=== PATIENT | female | born 1990 | race Caucasian/White ===

== ENCOUNTER 2017-04-12 08:12 | Inpatient (IN) | payer BC ==
[2017-04-12] MEDS ORDERED: Ondansetron 4 MG Tab.DIS PO PRN (10:26)
[2017-04-12] MEDS ORDERED: Nalbuphine 20 MG/1 ML Amp IVPUSH PRN (10:26)
[2017-04-12] MEDS ORDERED: Oxytocin/Lactated Ringers 10 UNIT/1,000 ML BAG IV SCH (10:30)
[2017-04-12] MEDS ORDERED: Measles, Mumps & Rubella Vaccine 0.5 ML SDV SUBCUT ONE (12:15)
[2017-04-12] MEDS ORDERED: fentaNYL 100 MCG/2 ML SDV EPIDUR PRN (12:24)
[2017-04-12] MEDS ORDERED: ePHEDrine 50 MG/ML SDV IVPUSH PRN (12:24)
[2017-04-12] MEDS ORDERED: Ondansetron 4 MG/2 ML SDV IVPUSH PRN (12:24)
[2017-04-12] MEDS ORDERED: diphenhydrAMINE 50 MG/ML SDV IVPUSH PRN (12:24)
[2017-04-12] MEDS ORDERED: Bupivacaine/fentaNYL/NS 100 ML Bag EPIDUR SCH (12:30)
[2017-04-12] MEDS: Lactated Ringers 1,000 ML IV SCH ×3 (12:30→17:18)
--- NOTE | 2017-04-12 12:36 | HP ---
DATE OF ADMISSION: 04/12/2017 ADMISSION DIAGNOSIS: Term intrauterine at 38 and 6/7th weeks gestational age, active labor with cervical dilation progress. HISTORY OF PRESENT ILLNESS: The patient is a 27-year-old, 1, para 0, white female, who is admitted with active labor. She has been dave since last evening. They have now increased in frequency and intensity and are every 3 to 4 minutes apart and moderate intensity, where the patient is having to breathe through some of them. She was evaluated initially in Labor and Delivery and found to have reassuring heart tones, contraction pattern consistent with above. Her cervix has changed somewhat in that she is 3 cm, 90% effaced, bulging bag of rico, -2 station, anterior and very soft. 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 LESLEY is set at 04/20/2017, as based upon an early ultrasound done at 11 and 1/7th weeks and specifically done on 09/30/2016. This is supported by another ultrasound done at 21 and 6/7 weeks on 12/14/2016. Last menstrual period was 07/07/2016. The patient had menarche at age 16. Cycles q.30 days. Her course has been relatively unremarkable. She declined genetic evaluation. She is group B strep negative. She did have some migraine headaches during the , but were manageable. She is rubella nonimmune, therefore is an MMR candidate . 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 She has had mild anemia in and has been on iron therapy. COURSE: The patient was initially seen on 09/21/2016, at 9 weeks and 6 days. She made good fundal height growth during the course of the , was seen on a regular basis. Initial weight was 186. Final weight on last evaluation, 04/04/2017, was 206 for approximately a 20-pound weight gain. labs show blood to be A positive. Antibody screen is negative. First hemoglobin was 13.2 and platelets were 196,000. Pap smear was normal. She is rubella equivocal. She is varicella nonimmune. RPR is nonreactive. Hepatitis B surface antigen and HIV assays were negative. Group B strep screen was negative. Second trimester labs showed a hemoglobin of 11.4, at which time, she was started on iron therapy. Platelets were 260,000 at that time. Her 1- hour GTT was normal at 102. ALLERGIES: None. CURRENT MEDICATIONS: 1. vitamins 1 daily. 2. Sumatriptan succinate 100 mg orally stat for onset of migraine headaches. 3. Ferrous sulfate 325 mg per day at a time different that her vitamins. PAST MEDICAL HISTORY: Unremarkable. PAST SURGICAL HISTORY: Unremarkable. FAMILY HISTORY: Mother and father are alive and well. Two sisters are alive and well. Maternal grandmother is alive, but has a history of stroke. Maternal grandfather is alive and well. Paternal grandmother is alive with history of anxiety. Paternal grandfather is secondary to stroke. No bleeding, clotting, or anesthesia problems noted in the family. SOCIAL HISTORY: The patient is , lives in [place]. 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 She does not use any significant alcohol, drugs, or tobacco. REVIEW OF SYSTEMS: SKIN: Negative. CARDIOVASCULAR: No chest pain or exercise intolerance. LUNGS/RESPIRATORY: No shortness of breath or infectious symptoms. BREASTS: Negative with the exception of changes. GI: Normal with good appetite. : Uterine changes associated with . MUSCULOSKELETAL: Occasional lower extremity edema. NEUROLOGIC: Negative. PHYSICAL EXAMINATION: GENERAL: The patient is a well-developed and well-nourished, pleasant female of stated age, in no acute distress. VITAL SIGNS: Initial weight was 186 prior to . Her height is 5 feet 4 inches. Her prepregnancy body mass index was 36. Her final weight was 206 for a weight gain of 20 pounds. Her last blood pressure was 122/80 and last heart rate in clinic was 136. heart tones are reassuring at this time. SKIN: Warm and dry without lesions. HEENT, NECK, AND BACK: Within normal limits. LUNGS: Clear with good breath sounds in all lung carlson. CARDIOVASCULAR: Shows regular rate and rhythm without murmurs. BREASTS: Exam is deferred having been done at first visit and found to be normal. The patient does plan to breast-feed. ABDOMEN: Protuberant with with the last fundal height at 37 cm on evaluation in clinic. Baby is in a vertex presentation. : Cervix is as described above. EXTREMITIES: Show minimal edema to possibly 1+ pitting edema. NEUROLOGIC: Within normal limits. ASSESSMENT: 1. 38 and 6/7th weeks intrauterine , active labor, progression of cervical dilation. 2. Group B strep screen was negative. 3. The patient is accepting of epidural for her labor and analgesia. 4. The patient plans to nurse. PLAN: 1. Anticipate normal spontaneous vaginal delivery. 2. Support nursing after delivery. 3. Epidural p.r.n. for pain. 4. MMR after delivery as the patient is rubella equivocal. MMODAL /[id number]
--- NOTE | 2017-04-12 12:36 | PCM.PREANE ---
Preanesthetic Assessment - Procedure Proposed Procedure: Labor Epidural - Anesthesia/Transfusion/Family Hx Anesthesia History: No Prior Anesthesia Family History of Anesthesia Reaction: No Transfusion History: No Prior Transfusion(s) - Review of Systems General: No Symptoms Pulmonary: No Symptoms Cardiovascular: No Symptoms Gastrointestinal: Other (GERD with ) Neurological: No Symptoms Other: Reports: None - Physical Assessment NPO Status Date: 04/12/17 NPO Status Time: 12:00 Respiratory Rate: 15 Vital Signs: Last Vital Signs Temp 36.7 C 04/12/17 08:30 Pulse 57 L 04/12/17 08:30 Resp 15 04/12/17 08:30 BP 142/87 H 04/12/17 08:30 Pulse Ox Height: 1.63 m Weight: 90.718 kg ASA Class: 2 Mental Status: Alert & Oriented x3 Airway Class: Mallampati = 1 Dentition: Reports: Normal Dentition Thyro-Mental Finger Breadths: 3 Mouth Opening Finger Breadths: 3 ROM/Head Extension: Full Lungs: Clear to Auscultation, Normal Respiratory Effort Cardiovascular: Regular Rate, Regular Rhythm - Lab Values: Laboratory Last Values WBC 9.84 K/mm3 (3.98-10.04) 04/12/17 11:02 RBC 3.94 M/mm3 (3.98-5.22) L 04/12/17 11:02 Hgb 12.4 gm/L (11.2-15.7) 04/12/17 11:02 Hct 36.8 % (34.1-44.9) 04/12/17 11:02 MCV 93.4 fl (79.4-94.8) 04/12/17 11:02 MCH 31.5 pg (25.6-32.2) 04/12/17 11:02 MCHC 33.7 g/dl (32.2-35.5) 04/12/17 11:02 RDW Std Deviation 44.2 fL (36.4-46.3) 04/12/17 11:02 Plt Count 165 K/mm3 (182-369) L 04/12/17 11:02 MPV 11.2 fl (9.4-12.3) 04/12/17 11:02 Neut % (Auto) 85.2 % (34.0-71.1) H 04/12/17 11:02 Lymph % (Auto) 11.8 % (19.3-51.7) L 04/12/17 11:02 [place] % (Auto) 2.9 % (4.7-12.5) L 04/12/17 11:02 Eos % (Auto) 0 (0.7-5.8) L 04/12/17 11:02 Baso % (Auto) 0.0 % (0.1-1.2) L 04/12/17 11:02 Neut # (Auto) 8.38 K/mm3 (1.56-6.13) H 04/12/17 11:02 Lymph # (Auto) 1.16 K/mm3 (1.18-3.74) L 04/12/17 11:02 [place] # (Auto) 0.29 K/mm3 (0.24-0.36) 04/12/17 11:02 Eos # (Auto) 0.00 K/mm3 (0.04-0.36) L 04/12/17 11:02 Baso # (Auto) 0.00 K/mm3 (0.01-0.08) L 04/12/17 11:02 Manual Slide Review Normal smear 04/12/17 11:02 - Allergies Allergies/Adverse Reactions: Allergies Allergy/AdvReac Type Severity Reaction Status Date / Time No Known Allergies Allergy Verified 04/12/17 10:16 - Blood Blood Available: No Product(s) Available: None - Anesthesia Plan Pre-Op Medication Ordered: None - Acknowledgements Anesthesia Type Planned: Epidural Pt an Appropriate Candidate for the Planned Anesthesia: Yes Alternatives and Risks of Anesthesia Discussed w Pt/Guardian: Yes Pt/Guardian Understands and Agrees with Anesthesia Plan: Yes PreAnesthesia Questionnaire - Past Health History Medical/Surgical History: Denies 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/Surgical 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 Smoking Status *Q: Never Smoker Tobacco Use Within Last Twelve Months: No Second Hand Smoke Exposure: No Recreational Drug Use History: No - HOME MEDS Home Medications: Home Meds Ferrous Sulfate, Dried [Slow Release Iron] 160 mg DAILY 04/12/17 [History] Prenat Vit Comb.10/Iron/Fa/Dha [Vitafol-OB + DHA] 1 each PO DAILY 04/12/17 [ History] - CURRENT (IN HOUSE) MEDS Current Meds: Current Medications Diphenhydramine HCl (Benadryl) 25 mg IVPUSH Q6H PRN PRN Reason: Pruritis Ephedrine Sulfate (Ephedrine Sulfate) 5 mg IVPUSH ASDIRECTED PRN PRN Reason: Hypotension Fentanyl (Sublimaze) 100 mcg EPIDUR Q3H PRN PRN Reason: Pain Fentanyl/Bupivacaine HCl (Fentanyl/Bupivacaine/Ns 2 Mcg-0.125% 100 Ml) 100 ml EPIDUR ASDIRECTED JAIME Lactated Ringer's (Ringers, Lactated) 1,000 mls @ 100 mls/hr IV ASDIRECTED JAIME Oxytocin/Lactated Ringer's (Pitocin In Lr 10 Units/1,000 Ml) 10 unit in 1,000 mls @ 100 mls/hr IV .CONTINUOUS JAIME PRN Reason: Protocol Lidocaine HCl (Xylocaine 1%) 50 ml INJECT ONETIME ONE Stop: 04/12/17 13:01 Nalbuphine HCl (Nubain) 10 mg IVPUSH Q2H PRN PRN Reason: Pain (moderate 4-6) Ondansetron HCl (Zofran Odt) 4 mg PO Q4H PRN PRN Reason: Nausea/Vomiting Ondansetron HCl (Zofran) 4 mg IVPUSH ONETIME PRN PRN Reason: Nausea/Vomiting Discontinued Medications Measles/Mumps/Rubella Vaccine Live (M-M-R Ii Vaccine) 0.5 ml SUBCUT .ONCE ONE Stop: 04/12/17 12:16
[2017-04-12] MEDS ORDERED: Lidocaine 1% 50 ML MDV INJECT ONE (13:00)
--- NOTE | 2017-04-12 18:48 | PCM.SN ---
- Free Text/Narrative Note: Leigh is a 27-year-old 1 now para 1001 white female at 38-6/7 weeks gestational age who is admitted in active labor on the a.m. of 04/12/2017. She reported contractions started approximately 0600 hrs. They progressed and were moderate in intensity upon arrival in labor and delivery. She was dave every 3-5 minutes. heart tones were reassuring. She progressed through labor and became complete at approximately at approximate 1730 hrs. She pushed for approximately half an hour and delivered a viable, espitia, male with Apgars of 9 and 9, a weight of 3150 g (6 pounds 15.1 ounces), a length of 20.0 inches in an occiput anterior position. Patient had multiple vaginal and vulvar lacerations including the bilateral sulcus vaginal laceration, perineal laceration which is second-degree in severity, a right labia minor laceration and 2 very superficial medial minor lacerations anteriorly. These all were repaired with 3-0 Monocryl in an interrupted and short continuous fashion. Epidural was used for anesthesia. Placenta delivered intact in a Isi fashion. It appeared intact and complete. It was meconium-stained. The patient received Pitocin IV after delivery of the baby to facilitate increase in uterine tone and slow bleeding. Pessary blood loss was 300 mL. Condition: good. Patient plans to nurse.
[2017-04-12] MEDS ORDERED: Acetaminophen 325 MG Tab PO PRN (19:08)
[2017-04-12] MEDS ORDERED: Lanolin 100% Cream 7 GM Tube TOP PRN (19:08)
[2017-04-12] MEDS ORDERED: Witch Hazel Medicated Pads 100/Jar TOP PRN (19:08)
[2017-04-12] MEDS ORDERED: Benzocaine/Menthol 20%-0.5% Spray 56 GM Canister TOP PRN (19:08)
[2017-04-12] MEDS: Ibuprofen 600 MG Tab PO PRN (21:01)
[2017-04-12] MEDS: Docusate Sodium 100 MG Cap PO PRN (21:02)
[2017-04-12] MEDS ORDERED: Bupivacaine 0.25% 10 ML SDV ONE (22:22)
[2017-04-13] MEDS: Prenatal Multivitamin with Calcium/Folic Acid/Iron Tab PO SCH (08:14)
--- NOTE | 2017-04-13 08:15 | PCM.SN ---
- Free Text/Narrative Note: Patient doing well. Minimal lochia. Pain is well-controlled. Voiding well and ambulating without concerns. Some discomfort in her bottom secondary to stitches. Patient is afebrile, vital signs stable. Uterus is at umbilicus -1. Legs nontender, minimal edema. day 1 labs show that hemoglobin is 9.9, platelets are 144. Assessment/plan: day 1 doing well. Recommend routine cares. Home tomorrow.
[2017-04-13] MEDS: Ibuprofen 600 MG Tab PO PRN ×2 (09:18→18:42)
[2017-04-13] MEDS: Docusate Sodium 100 MG Cap PO PRN (18:41)
[2017-04-14 05:08] VITALS: BP 142/87
--- NOTE | 2017-04-14 08:44 | PCM.DCSUM1 ---
Discharge Summary - Hospital Course Free Text/Narrative:: Leigh is a 27-year-old 1 now para 1001 white female at 38-6/7 weeks gestational age who is admitted in active labor on the a.m. of 04/12/2017. She reported contractions started approximately 0600 hrs. They progressed and were moderate in intensity upon arrival in labor and delivery. She was dave every 3-5 minutes. heart tones were reassuring. She progressed through labor and became complete at approximately at approximate 1730 hrs. She pushed for approximately half an hour and delivered a viable, espitia, male with Apgars of 9 and 9, a weight of 3150 g (6 pounds 15.1 ounces), a length of 20.0 inches in an occiput anterior position. Patient had multiple vaginal and vulvar lacerations including the bilateral sulcus vaginal laceration, perineal laceration which is second-degree in severity, a right labia minor laceration and 2 very superficial medial minor lacerations anteriorly. These all were repaired with 3-0 Monocryl in an interrupted and short continuous fashion. Epidural was used for anesthesia. Placenta delivered intact in a Isi fashion. It appeared intact and complete. It was meconium-stained. The patient received Pitocin IV after delivery of the baby to facilitate increase in uterine tone and slow bleeding. Pessary blood loss was 300 mL. patient's done well. She is nursing without problems, she is ambulating well and voiding without concerns. Pain is under good control. First day laboratory testing shows hemoglobin 9.9 and platelets of 144. Patient is doing well with these results. Patient is desiring to be discharged today. - Discharge Data Discharge Date: 04/14/17 Discharge Disposition: Home, Self-Care 01 Condition: Good - Patient Instructions Diet: Regular Diet as Tolerated (Nursing diet was increased calories and calcium.) Activity: As Tolerated (No intercourse or tampons until bleeding resolves.) Driving: May Drive Today Showering/Bathing: May Shower (May take a bath) Notify Provider of: Fever, Increased Pain, Swelling and Redness - Discharge Plan Home Medications: Home Meds Ferrous Sulfate, Dried [Slow Release Iron] 160 mg DAILY 04/12/17 [History] Prenat Vit Comb.10/Iron/Fa/Dha [Vitafol-OB + DHA] 1 each PO DAILY 04/12/17 [ History] Ibuprofen [IJD: Ibuprofen] 600 mg PO Q4H PRN #30 tablet 04/14/17 [Rx] Referrals: Adolfo Buck MD [Primary Care Provider] - ([facility] - Discharge Summary/Plan Comment DC Time >30 min.: No Discharge Summary/Plan Comment: Discharge instructions: 1. Discharge home 2. Regular, high fiber, nursing diet with increase calories and calcium as recommended. 3. Precautions given concern increased pain, bleeding, temperature, signs/ symptoms of DVT/PE. 4. Medications per home medication was printed, discussed with and given to the patient. 5. [facility]. Diagnosis: 38-6/7 week intrauterine -delivered Condition: Good - Patient Data Vitals - Most Recent: Last Vital Signs Temp 36.6 C 04/14/17 05:02 Pulse 71 04/14/17 05:02 Resp 15 04/13/17 11:38 BP 121/91 H 04/14/17 05:02 Pulse Ox 97 04/14/17 05:02 Weight - Most Recent: 90.718 kg Med Orders - Current: Current Medications Acetaminophen (Tylenol) 650 mg PO Q4H PRN PRN Reason: mild pain or fever Benzocaine/Menthol (Dermoplast Pain Relief [place]) 0 gm TOP ASDIRECTED PRN PRN Reason: Perineal Comfort Measure Last Admin: 04/12/17 21:28 Dose: 1 canister Docusate Sodium (Colace) 100 mg PO BID PRN PRN Reason: Constipation Last Admin: 04/13/17 18:41 Dose: 100 mg Emollient Ointment (Lansinoh Hpa) 0 gm TOP ASDIRECTED PRN PRN Reason: Sore Nipples Last Admin: 04/13/17 09:37 Dose: 7 gm Ibuprofen (Motrin) 600 mg PO Q4H PRN PRN Reason: Mild pain or fever Last Admin: 04/13/17 18:42 Dose: 600 mg Prenat Multivit/[place]/Iron/Folic Ac ( Plus Iron) 1 each PO DAILY JAIME Last Admin: 04/13/17 08:14 Dose: 1 each Witch Janeen (Tucks) 1 pad TOP ASDIRECTED PRN PRN Reason: Hemorrhoid pain Last Admin: 04/12/17 21:29 Dose: 1 tub Discontinued Medications Bupivacaine HCl (Sensorcaine-Mpf 0.25%) 10 ml .ROUTE .STK-MED ONE Stop: 04/12/17 22:23 Diphenhydramine HCl (Benadryl) 25 mg IVPUSH Q6H PRN PRN Reason: Pruritis Ephedrine Sulfate (Ephedrine Sulfate) 5 mg IVPUSH ASDIRECTED PRN PRN Reason: Hypotension Fentanyl (Sublimaze) 100 mcg EPIDUR Q3H PRN PRN Reason: Pain Last Admin: 04/12/17 13:05 Dose: 100 mcg Fentanyl/Bupivacaine HCl (Fentanyl/Bupivacaine/Ns 2 Mcg-0.125% 100 Ml) 100 ml EPIDUR ASDIRECTED JAIME Last Admin: 04/12/17 13:06 Dose: 100 ml Lactated Ringer's (Ringers, Lactated) 1,000 mls @ 100 mls/hr IV ASDIRECTED JAIME Last Admin: 04/12/17 17:18 Dose: 100 mls/hr Oxytocin/Lactated Ringer's (Pitocin In Lr 10 Units/1,000 Ml) 10 unit in 1,000 mls @ 100 mls/hr IV .CONTINUOUS JAIME PRN Reason: Protocol Last Admin: 04/12/17 18:11 Dose: 500 mls/hr Lidocaine HCl (Xylocaine 1%) 50 ml INJECT ONETIME ONE Stop: 04/12/17 13:01 Last Admin: 04/13/17 10:06 Dose: Not Given Measles/Mumps/Rubella Vaccine Live (M-M-R Ii Vaccine) 0.5 ml SUBCUT .ONCE ONE Stop: 04/12/17 12:16 Last Admin: 04/13/17 10:32 Dose: 0.5 ml Nalbuphine HCl (Nubain) 10 mg IVPUSH Q2H PRN PRN Reason: Pain (moderate 4-6) Ondansetron HCl (Zofran Odt) 4 mg PO Q4H PRN PRN Reason: Nausea/Vomiting Ondansetron HCl (Zofran) 4 mg IVPUSH ONETIME PRN PRN Reason: Nausea/Vomiting *Q Meaningful Use (DIS) - VTE *Q VTE Criteria *Q: - Stroke *Q Stroke Criteria *Q: - AMI *Q AMI Criteria *Q:
[2017-04-14] MEDS: Prenatal Multivitamin with Calcium/Folic Acid/Iron Tab PO SCH (10:15)
== END 2017-04-14 10:15 | disposition home or self-care (01) | DRG 560 ==
LOC: JD.OB 08:12 → JD.OBCHECK 08:12 → JD.OB 10:26 → JD.OBCHECK 10:26 → OBSVTOIN 18:06 → JD.OB 18:06
PROVIDERS: ADMIT Obstetrics & Gynecology; ATTEND Obstetrics & Gynecology
PROC: 10E0XZZ Delivery of Products of Conception, External Approach (ICD-10-PCS; principal; 2017-04-12)
PROC: 0KQM0ZZ Repair Perineum Muscle, Open Approach (ICD-10-PCS; 2017-04-12)
PROC: 00HU33Z Insertion of Infusion Device into Spinal Canal, Percutaneous Approach (ICD-10-PCS; 2017-04-12)
PROC: 3E0R3CZ (ICD-10-PCS; 2017-04-12)
PROC: 3E0234Z Introduction of Serum, Toxoid and Vaccine into Muscle, Percutaneous Approach (ICD-10-PCS; 2017-04-13)
DX: O70.1 Second degree perineal laceration during delivery (principal); O69.81X0 Labor and delivery complicated by cord around neck, without compression, not applicable or unspecified; Z3A.39 39 weeks gestation of pregnancy; Z37.0 Single live birth; Z23 Encounter for immunization
CPT/HCPCS: 01967; 36415; 85025; 85027; 90707; A9270-GY; J2590; J3010; J7120

== ENCOUNTER 2020-04-01 06:50 | Inpatient (IN) | payer OTHER ==
--- NOTE | 2020-03-31 13:11 | PCM.LDHP ---
L&D History of Present Illness - General Admit Problem/Dx: Admission Diagnosis/Problem Admission Diagnosis/Problem - Related Data Allergies/Adverse Reactions: Allergies Allergy/AdvReac Type Severity Reaction Status Date / Time No Known Allergies Allergy Verified 04/12/17 10:16 Home Medications: Home Meds Ferrous Sulfate, Dried [Slow Release Iron] 160 mg DAILY 04/12/17 [History] Vit 10/Iron/Folic/Dha [Vitafol-OB + DHA] 1 each PO DAILY 04/12/17 [History] Ibuprofen [IJD: Ibuprofen] 600 mg PO Q4H PRN #30 tablet 04/14/17 [Rx] Past Medical History - Past Health History Medical/Surgical History: Denies 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
[2020-04-01] MEDS ORDERED: Nalbuphine 10 MG/ML Syringe IVPUSH PRN (07:05)
[2020-04-01] MEDS ORDERED: Sodium Chloride 0.9% 10 ML Syringe FLUSH PRN (07:05)
[2020-04-01] MEDS ORDERED: Oxytocin/Lactated Ringers 10 UNIT/1,000 ML BAG IV SCH ×2 (07:15)
[2020-04-01] MEDS ORDERED: Ampicillin 2 GM in Sodium Chloride 0.9% 100 ML IV ONE (07:30)
[2020-04-01] MEDS: Lactated Ringers 1,000 ML IV SCH ×4 (07:47→13:10)
--- NOTE | 2020-04-01 09:11 | PCM.PREANE ---
Preanesthetic Assessment - Procedure Proposed Procedure: jackson - Anesthesia/Transfusion/Family Hx Anesthesia History: Prior Anesthesia Without Reaction Family History of Anesthesia Reaction: No Transfusion History: No Prior Transfusion(s) - Review of Systems General: No Symptoms Pulmonary: No Symptoms Cardiovascular: No Symptoms Gastrointestinal: Nausea (this last week) Neurological: No Symptoms Other: Reports: None, Sinus Problem (allergies- uses claritin) - Physical Assessment Vital Signs: Last Vital Signs Temp 97.2 F 04/01/20 07:05 Pulse 86 04/01/20 07:05 Resp 16 04/01/20 07:05 BP 126/81 04/01/20 07:05 Pulse Ox 100 04/01/20 07:05 Height: 5 ft 4 in Weight: 88.995 kg ASA Class: 2 Mental Status: Alert & Oriented x3 Airway Class: Mallampati = 1 Dentition: Reports: Normal Dentition Thyro-Mental Finger Breadths: 3 Mouth Opening Finger Breadths: 3 ROM/Head Extension: Full Lungs: Clear to Auscultation, Normal Respiratory Effort Cardiovascular: Regular Rate, Regular Rhythm - Lab Values: Laboratory Last Values WBC 5.69 K/mm3 (3.98-10.04) 04/01/20 07:24 RBC 3.80 M/mm3 (3.98-5.22) L 04/01/20 07:24 Hgb 11.8 gm/dl (11.2-15.7) D 04/01/20 07:24 Hct 36.0 % (34.1-44.9) 04/01/20 07:24 MCV 94.7 fl (79.4-94.8) 04/01/20 07:24 MCH 31.1 pg (25.6-32.2) 04/01/20 07:24 MCHC 32.8 g/dl (32.2-35.5) 04/01/20 07:24 RDW Std Deviation 44.9 fL (36.4-46.3) 04/01/20 07:24 Plt Count 192 K/mm3 (182-369) 04/01/20 07:24 MPV 10.6 fl (9.4-12.3) 04/01/20 07:24 Neut % (Auto) 60.7 % (34.0-71.1) 04/01/20 07:24 Lymph % (Auto) 29.9 % (19.3-51.7) 04/01/20 07:24 [place] % (Auto) 8.3 % (4.7-12.5) 04/01/20 07:24 Eos % (Auto) 0.7 (0.7-5.8) 04/01/20 07:24 Baso % (Auto) 0.2 % (0.1-1.2) 04/01/20 07:24 Neut # (Auto) 3.46 K/mm3 (1.56-6.13) 04/01/20 07:24 Lymph # (Auto) 1.70 K/mm3 (1.18-3.74) 04/01/20 07:24 [place] # (Auto) 0.47 K/mm3 (0.24-0.36) H 04/01/20 07:24 Eos # (Auto) 0.04 K/mm3 (0.04-0.36) 04/01/20 07:24 Baso # (Auto) 0.01 K/mm3 (0.01-0.08) 04/01/20 07:24 COVID-19 (INGA) Negative (NEGATIVE) 04/01/20 07:52 Blood Type A POSITIVE 04/01/20 07:24 Gel Antibody Screen Negative 04/01/20 07:24 - Allergies Allergies/Adverse Reactions: Allergies Allergy/AdvReac Type Severity Reaction Status Date / Time No Known Allergies Allergy Verified 04/01/20 07:05 - Blood Blood Available: No - Acknowledgements Anesthesia Type Planned: Epidural Pt an Appropriate Candidate for the Planned Anesthesia: Yes Alternatives and Risks of Anesthesia Discussed w Pt/Guardian: Yes Pt/Guardian Understands and Agrees with Anesthesia Plan: Yes PreAnesthesia Questionnaire - Past Health History Medical/Surgical History: Denies Medical/Surgical History Cardiovascular History: Reports: None Respiratory History: Reports: None Gastrointestinal History: Reports: GERD (with preg) 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 Oncologic (Cancer) History: Reports: None - History Comment History Comment: claritin for allergies prn - SUBSTANCE USE Smoking Status *Q: Never Smoker Tobacco Use Within Last Twelve Months: No Second Hand Smoke Exposure: No Days Per Week of Alcohol Use: 0 Recreational Drug Use History: No - HOME MEDS Home Medications: Home Meds Ferrous Sulfate, Dried [Slow Release Iron] 160 mg DAILY 04/12/17 [History] Vit 10/Iron/Folic/Dha [Vitafol-OB + DHA] 1 each PO DAILY 04/12/17 [History] - CURRENT (IN HOUSE) MEDS Current Meds: Current Medications Ampicillin Sodium 1 gm/ Sodium (Chloride) 100 mls @ 200 mls/hr IV Q4H JAIME Oxytocin/Lactated Ringer's (Pitocin In Lr 10 Units/1,000 Ml) 10 unit in 1,000 mls @ 12 mls/hr IV TITRATE JAIME; Protocol Last Titration: 04/01/20 08:21 Dose: 4 munits/min, 24 mls/hr Documented by: Oxytocin/Lactated Ringer's (Pitocin In Lr 10 Units/1,000 Ml) 10 unit in 1,000 mls @ 500 mls/hr IV .CONTINUOUS JAIME Lactated Ringer's (Ringers, Lactated) 1,000 mls @ 100 mls/hr IV ASDIRECTED JAIME Last Admin: 04/01/20 07:47 Dose: 100 mls/hr Documented by: Nalbuphine HCl (Nubain) 10 mg IVPUSH Q2H PRN PRN Reason: Pain Sodium Chloride (Saline Flush) 10 ml FLUSH ASDIRECTED PRN PRN Reason: Keep Vein Open Discontinued Medications Ampicillin Sodium 2 gm/ Sodium (Chloride) 100 mls @ 200 mls/hr IV ONETIME ONE Stop: 04/01/20 07:59 Last Admin: 04/01/20 07:47 Dose: 200 mls/hr Documented by:
--- NOTE | 2020-04-01 09:31 | PCM.LDHP ---
<Marychuy Jorge E - Last Filed: 04/01/20 15:36> L&D History of Present Illness - General Date of Service: 04/01/20 Admit Problem/Dx: Patient Status Order with Admit Dx/Problem 04/01/20 07:05 Patient Status [ADT] Routine Admission Diagnosis/Problem Admission Diagnosis/Problem 04/01/20 09:21 Leigh is a 30 year old -0-0-1 white female presenting at 39 4/7 weeks gestation with an LESLEY of 04/04/2020 for elective induction of labor. Source of Information: Patient History Limitations: Reports: No Limitations, Physical Impairment - History of Present Illness Introduction:: Leigh is a 30 year old -0-0-1 white female presenting at 39 4/7 weeks gestation with an LESLEY of 04/04/2020 for elective induction of labor. Cervix upon admission is 2+ cm, 70% effaced, soft, mid-position, and -3 station, Szymanski score was 6. Ampicillin was began this morning due to GBS positive test. Pitocin was administered and membranes were ruptured with clear fluid. Leigh has been feeling well aside from some nausea which began about a week and a half ago. She has been feeling Harrison Epstein contractions and occasional groin pain, both new for her this . She has no concerns at this time. She has been taking a daily vitamin and iron supplementation. She has a history of seasonal allergies treated with Claritin, but greatly improved during . She does inform me that she was told that her spine was shallow at her epidural during her previous in 2017. The induction procedural steps, risks, benefits, and alternative options for care were discussed with the patient and her . They appear to understand and wish to proceed with induction at this time. OBGYN: Menarche began at age 16. Her cycles occur every 28-31 days. She was not using control at time of conception. LMP was . Her LESLEY of 04/04/2020 was estimated from her LMP and supported by 3 ultrasounds, on 09/17/2019, 12/09/2019, and 01/10/2020. 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 Patient has no history of STI's or abnormal pap smears. Her previous pregnancies include: 1. Male infant born on 04/12/2017 at 38 6/7 weeks gestation via with epidural after 15 hours of labor - 6 lbs 5 oz. Child was born in [place], [place] and is named Ronald Hanna. Course: Leigh was seen for her first visit on 08/28/2019. LESLEY according to [place] correlated well with her LMP. She was seen on a regular basis throughout the with stable vital signs and appropriate growth supported by fundal height measurements. Influenza vaccine was given on 08/28/2019 and Tdap was given in [place] on 02/19/2020. She has been taking a daily vitamin and iron supplementation. Pre- weight was 174 lbs. Weight today is 196 lbs 3.2 oz, a total increase of 22 lbs 3 oz during . GBS screen was positive on 03/04/2020 and she received prophylactic Ampicillin this morning administered in Labor and Delivery. Declined genetic testing. She desires an ep idural in Labor ad Delivery. She does plan to breastfeed. Laboratory Testing in : Blood type is A+ with a negative antibody screen. At her first visit on 08/28/2019, her Hgb was 12.8 g/dL with a platelet count of 216,000/uL. Rubella titer showed immunity. Urine culture was negative. HBsAg, HIV, chlamydia, and gonorrhea testing were all negative. Her second trimester Hgb was 11.9 g/dL with a platelet count of 201,000/uL. 1 hour glucose tolerance test was normal at 131. Third trimester VDRL/RPR was non-reactive. GBS on 03/04/2020 was positive, as noted above. - Related Data Allergies/Adverse Reactions: Allergies Allergy/AdvReac Type Severity Reaction Status Date / Time No Known Allergies Allergy Verified 04/01/20 07:05 Home Medications: Home Meds Ferrous Sulfate, Dried [Slow Release Iron] 160 mg DAILY 04/12/17 [History] Vit 10/Iron/Folic/Dha [Vitafol-OB + DHA] 1 each PO DAILY 04/12/17 [History] Past Medical History - Past Health History Medical/Surgical History: Denies Medical/Surgical History Cardiovascular History: Reports: None Respiratory History: Reports: None Gastrointestinal History: Reports: GERD (with preg) HOOKER LASTER History: Reports: None, Oncologic (Cancer) History: Reports: None - History Comment History Comment: claritin for allergies prn Social & Family History - Family History Family Medical History: Noncontributory Cardiac: Reports: Other (See Below) (Stroke: Maternal grandmother, Maternal grandfather, Paternal Grandfather) Endocrine/Metabolic: Reports: Diabetes, type II (Paternal Grandmother) - Tobacco Use Smoking Status *Q: Never Smoker Second Hand Smoke Exposure: No - Caffeine Use Caffeine Use: Reports: None - Alcohol Use Days Per Week of Alcohol Use: 0 - Recreational Drug Use Recreational Drug Use: No H&P Review of Systems - Review of Systems: Review Of Systems: See Below Free Text/Narrative: General: No fever or chills. Head: No headaches, dizziness, or lightheadedness. Eyes: No eye pain or discharge. Ears: No ear pain or discharge. Nose: No rhinorrhea or congestion. Throat: No sore throat or dysphagia. Cardiovascular: No chest pain or palpitations. Respiratory: No shortness or breath, cough, or wheeze. Gastrointestinal: Nausea for the past week and a half. No abdominal pain or vomiting. Genitourinary: No vaginal itching, discharge, bleeding, or leakage of fluid. Musculoskeletal: No joint pain or muscle pain. Skin: No rashes. L&D Exam - Exam Exam: See Below - Vital Signs Vital Signs: Last Vital Signs Temp 97.2 F 04/01/20 07:05 Pulse 86 04/01/20 07:05 Resp 16 04/01/20 07:05 BP 126/81 04/01/20 07:05 Pulse Ox 100 04/01/20 07:05 Weight: 88.995 kg - Szymanski Score Szymanski Score Cervix Position: Midposition Szymanski Score Consistency: Soft Szymanski Score Effacement: 51-70% Szymanski Score Dilation: 1-2 cm (2+ cm) Szymanski Score 's Station: -3 Szymanski Score Total: 6 - Exam General: Alert, Oriented, Other (No acute distress.) HEENT: Other (HEENT within normal limits. ) Neck: Supple Lungs: Clear to Auscultation, Normal Respiratory Effort, Other (No wheezes, crackles, rales, or rhonchi. ) Cardiovascular: Regular Rate, Regular Rhythm, Normal S1, Normal S2, Other (No murmurs. ) Genitourinary: Normal external exam Extremities: Non-Tender, No Pedal Edema Skin: Warm, Dry, Intact Neurological: Normal Speech, Normal Tone Psychiatric: Alert, Normal Affect, Normal Mood - Patient Data Lab Results Last 24 hrs: Laboratory Results - last 24 hr 04/01/20 04/01/20 04/01/20 Range/Units 07:24 07:24 07:52 WBC 5.69 (3.98-10.04) K/mm3 RBC 3.80 L (3.98-5.22) M/mm3 Hgb 11.8 D (11.2-15.7) gm/dl Hct 36.0 (34.1-44.9) % MCV 94.7 (79.4-94.8) fl MCH 31.1 (25.6-32.2) pg MCHC 32.8 (32.2-35.5) g/dl RDW Std Deviation 44.9 (36.4-46.3) fL Plt Count 192 (182-369) K/mm3 MPV 10.6 (9.4-12.3) fl Neut % (Auto) 60.7 (34.0-71.1) % Lymph % (Auto) 29.9 (19.3-51.7) % Dale % (Auto) 8.3 (4.7-12.5) % Eos % (Auto) 0.7 (0.7-5.8) Baso % (Auto) 0.2 (0.1-1.2) % Neut # (Auto) 3.46 (1.56-6.13) K/mm3 Lymph # (Auto) 1.70 (1.18-3.74) K/mm3 Dale # (Auto) 0.47 H (0.24-0.36) K/mm3 Eos # (Auto) 0.04 (0.04-0.36) K/mm3 Baso # (Auto) 0.01 (0.01-0.08) K/mm3 COVID-19 (INGA) Negative (NEGATIVE) Blood Type A POSITIVE Gel Antibody Screen Negative Result Diagrams: 04/01/20 07:24 Problem List Initiated/Reviewed/Updated: Yes Orders Last 24hrs: Active Orders 24 hr Category Date Time Status Patient Status [ADT] Routine ADT 04/01/20 07:05 Active Activity as Tolerated [RC] PFP Care 04/01/20 07:05 Active Communication Order [RC] ASDIRECTED Care 04/01/20 07:05 Active Heart Tones [RC] ASDIRECTED Care 04/01/20 07:06 Active Non Stress Test [RC] PER UNIT ROUTINE Care 04/01/20 07:05 Active Notify Provider [RC] PFP Care 04/01/20 07:05 Active Notify Provider [RC] PRN Care 04/01/20 07:05 Active Peripheral IV Care [RC] . DIRECTED Care 04/01/20 07:06 Active Vital Signs [RC] PER UNIT ROUTINE Care 04/01/20 07:05 Active Regular Diet [DIET] Diet 04/01/20 Breakfast Active PATIENT RETYPE [BBK] Routine Lab 04/01/20 08:23 Ordered RAPID PLASMA REAGIN,RPR [CHEM] Routine Lab 04/01/20 07:24 Received Ampicillin 1 gm Med 04/01/20 11:30 Active Sodium Chloride 0.9% [Normal Saline] 100 ml IV Q4H Lactated Ringers [Ringers, Lactated] 1,000 ml Med 04/01/20 07:15 Active IV ASDIRECTED Nalbuphine [Nubain] Med 04/01/20 07:05 Active 10 mg IVPUSH Q2H PRN Oxytocin/Lactated Ringers [Pitocin in LR 10 Units/1,000 Med 04/01/20 07:15 Act pat ML] 10 unit in 1,000 ml IV .CONTINUOUS Oxytocin/Lactated Ringers [Pitocin in LR 10 Units/1,000 Med 04/01/20 07:15 Active ML] 10 unit in 1,000 ml IV TITRATE Sodium Chloride 0.9% [Saline Flush] Med 04/01/20 07:05 Active 10 ml FLUSH ASDIRECTED PRN Electronic Heart Tones Ext w TOCO [WOMSER] Oth 04/01/20 07:05 Ordered Routine Electronic Heart Tones Internal [WOMSER] Per Unit Oth 04/01/20 07:05 Ordered Routine Peripheral IV Insertion Adult [OM.PC] Routine Oth 04/01/20 07:05 Ordered Resuscitation Status Routine Resus Stat 04/01/20 07:05 Ordered Medication Orders Ampicillin Sodium 1 gm/ Sodium (Chloride) 100 mls @ 200 mls/hr IV Q4H JAIME Oxytocin/Lactated Ringer's (Pitocin In Lr 10 Units/1,000 Ml) 10 unit in 1,000 mls @ 12 mls/hr IV TITRATE JAIME; Protocol Last Titration: 04/01/20 08:21 Dose: 4 munits/min, 24 mls/hr Documented by: [email or web address] Admin: 04/01/20 07:47 Dose: 2 munits/min, 12 mls/hr Documented by: [id number] Oxytocin/Lactated Ringer's (Pitocin In Lr 10 Units/1,000 Ml) 10 unit in 1,000 mls @ 500 mls/hr IV .CONTINUOUS JAIME Lactated Ringer's (Ringers, Lactated) 1,000 mls @ 100 mls/hr IV ASDIRECTED JAIME Last Admin: 04/01/20 07:47 Dose: 100 mls/hr Documented by: [id number] Nalbuphine HCl (Nubain) 10 mg IVPUSH Q2H PRN PRN Reason: Pain Sodium Chloride (Saline Flush) 10 ml FLUSH ASDIRECTED PRN PRN Reason: Keep Vein Open Assessment/Plan Comment:: Assessment & Plan 1. female at 39 4/7 weeks gestation - Induction of labor by Pitocin and AROM. 2. Group B strep positive - susceptible to Ampicillin, prophylactic Ampicillin administered this morning. 3. Induction of labor by Pitocin - Administered this morning. 4. Patient desires epidural - Epidural completed this morning. <Adolfo Buck F - Last Filed: 04/01/20 17:09> L&D History of Present Illness - General Admit Problem/Dx: Patient Status Order with Admit Dx/Problem 04/01/20 07:05 Patient Status [ADT] Routine Admission Diagnosis/Problem Admission Diagnosis/Problem L&D Exam - Vital Signs Vital Signs: Last Vital Signs Temp 36.2 C 04/01/20 07:05 Pulse 86 04/01/20 07:05 Resp 16 04/01/20 07:05 BP 126/81 04/01/20 07:05 Pulse Ox 100 04/01/20 07:05 - Patient Data Lab Results Last 24 hrs: Laboratory Results - last 24 hr 04/01/20 04/01/20 04/01/20 Range/Units 07:24 07:24 07:52 WBC 5.69 (3.98-10.04) K/mm3 RBC 3.80 L (3.98-5.22) M/mm3 Hgb 11.8 D (11.2-15.7) gm/dl Hct 36.0 (34.1-44.9) % MCV 94.7 (79.4-94.8) fl MCH 31.1 (25.6-32.2) pg MCHC 32.8 (32.2-35.5) g/dl RDW Std Deviation 44.9 (36.4-46.3) fL Plt Count 192 (182-369) K/mm3 MPV 10.6 (9.4-12.3) fl Neut % (Auto) 60.7 (34.0-71.1) % Lymph % (Auto) 29.9 (19.3-51.7) % Dale % (Auto) 8.3 (4.7-12.5) % Eos % (Auto) 0.7 (0.7-5.8) Baso % (Auto) 0.2 (0.1-1.2) % Neut # (Auto) 3.46 (1.56-6.13) K/mm3 Lymph # (Auto) 1.70 (1.18-3.74) K/mm3 Dale # (Auto) 0.47 H (0.24-0.36) K/mm3 Eos # (Auto) 0.04 (0.04-0.36) K/mm3 Baso # (Auto) 0.01 (0.01-0.08) K/mm3 COVID-19 (INGA) Negative (NEGATIVE) Blood Type A POSITIVE Gel Antibody Screen Negative Result Diagrams: 04/01/20 07:24 Orders Last 24hrs: Active Orders 24 hr Category Date Time Status Patient Status [ADT] Routine ADT 04/01/20 07:05 Active Activity as Tolerated [RC] PFP Care 04/01/20 07:05 Active Communication Order [RC] ASDIRECTED Care 04/01/20 07:05 Active Heart Tones [RC] ASDIRECTED Care 04/01/20 07:06 Active Non Stress Test [RC] PER UNIT ROUTINE Care 04/01/20 07:05 Active Notify Provider [RC] ASDIRECTED Care 04/01/20 09:59 Active Notify Provider [RC] PFP Care 04/01/20 07:05 Active Notify Provider [RC] PRN Care 04/01/20 07:05 Active Peripheral IV Care [RC] . DIRECTED Care 04/01/20 07:06 Active Vital Signs [RC] PER UNIT ROUTINE Care 04/01/20 07:05 Active Regular Diet [DIET] Diet 04/01/20 Breakfast Active RAPID PLASMA REAGIN,RPR [CHEM] Routine Lab 04/01/20 07:24 Received Ampicillin 1 gm Med 04/01/20 11:30 Active Sodium Chloride 0.9% [Normal Saline] 100 ml IV Q4H Bupivacaine/fentaNYL/NS [fentaNYL/Bupivacaine/NS 2 MCG- Med 04/01/20 09:59 Active 0.125% 100 ML] 100 ml EPIDUR ASDIRECTED PRN Lactated Ringers [Ringers, Lactated] 1,000 ml Med 04/01/20 07:15 Active IV ASDIRECTED Nalbuphine [Nubain] Med 04/01/20 07:05 Active 10 mg IVPUSH Q2H PRN Oxytocin/Lactated Ringers [Pitocin in LR 10 Units/1,000 Med 04/01/20 07:15 Active ML] 10 unit in 1,000 ml IV .CONTINUOUS Oxytocin/Lactated Ringers [Pitocin in LR 10 Units/1,000 Med 04/01/20 07:15 Active ML] 10 unit in 1,000 ml IV TITRATE Sodium Chloride 0.9% [Saline Flush] Med 04/01/20 07:05 Active 10 ml FLUSH ASDIRECTED PRN diphenhydrAMINE [Benadryl] Med 04/01/20 09:59 Active 25 mg IVPUSH Q6H PRN ePHEDrine [ePHEDrine sulfate] Med 04/01/20 09:59 Active 5 mg IVPUSH ASDIRECTED PRN fentaNYL [Sublimaze] Med 04/01/20 09:59 Active 100 mcg EPIDUR Q3H PRN Electronic Heart Tones Ext w TOCO [WOMSER] Oth 04/01/20 07:05 Ordered Routine Electronic Heart Tones Internal [WOMSER] Per Unit Ot 04/01/20 07:05 Ordered Routine Peripheral IV Insertion Adult [OM.PC] Routine Oth 04/01/20 07:05 Ordered Resuscitation Status Routine Resus Stat 04/01/20 07:05 Ordered Medication Orders Diphenhydramine HCl (Benadryl) 25 mg IVPUSH Q6H PRN PRN Reason: pruritis Ephedrine Sulfate (Ephedrine Sulfate) 5 mg IVPUSH ASDIRECTED PRN PRN Reason: Hypotension Fentanyl (Sublimaze) 100 mcg EPIDUR Q3H PRN PRN Reason: Pain Last Admin: 04/01/20 10:14 Dose: 100 mcg Documented by: [id number] Fentanyl/Bupivacaine HCl (Fentanyl/Bupivacaine/Ns 2 Mcg-0.125% 100 Ml) 100 ml EPIDUR ASDIRECTED PRN PRN Reason: Pain Last Admin: 04/01/20 10:14 Dose: 100 ml Documented by: [id number] Ampicillin Sodium 1 gm/ Sodium (Chloride) 100 mls @ 200 mls/hr IV Q4H JAIME Last Admin: 04/01/20 15:25 Dose: 200 mls/hr Documented by: [email or web address] Infusion: 04/01/20 11:59 Dose: 200 mls/hr Documented by: [email or web address] Admin: 04/01/20 11:29 Dose: 200 mls/hr Documented by: [id number] Oxytocin/Lactated Ringer's (Pitocin In Lr 10 Units/1,000 Ml) 10 unit in 1,000 mls @ 12 mls/hr IV TITRATE JAIME; Protocol Last Titration: 04/01/20 10:15 Dose: 8 munits/min, 48 mls/hr Documented by: [id number] Titration: 04/01/20 09:15 Dose: 6 munits/min, 36 mls/hr Documented by: [id number] Titration: 04/01/20 08:21 Dose: 4 munits/min, 24 mls/hr Documented by: [id number] Admin: 04/01/20 07:47 Dose: 2 munits/min, 12 mls/hr Documented by: [id number] Oxytocin/Lactated Ringer's (Pitocin In Lr 10 Units/1,000 Ml) 10 unit in 1,000 mls @ 500 mls/hr IV .CONTINUOUS JAIME Lactated Ringer's (Ringers, Lactated) 1,000 mls @ 100 mls/hr IV ASDIRECTED JAIME Last Admin: 04/01/20 13:10 Dose: 100 mls/hr Documented by: [id number] Infusion: 04/01/20 13:10 Dose: 100 mls/hr Documented by: [id number] Admin: 04/01/20 10:39 Dose: 100 mls/hr Documented by: [id number] Infusion: 04/01/20 10:39 Dose: 100 mls/hr Documented by: [id number] Admin: 04/01/20 09:50 Dose: 100 mls/hr Documented by: [id number] Infusion: 04/01/20 09:50 Dose: 100 mls/hr Documented by: [email or web address] Admin: 04/01/20 07:47 Dose: 100 mls/hr Documented by: [email or web address] Nalbuphine HCl (Nubain) 10 mg IVPUSH Q2H PRN PRN Reason: Pain Sodium Chloride (Saline Flush) 10 ml FLUSH ASDIRECTED PRN PRN Reason: Keep Vein Open
[2020-04-01] MEDS ORDERED: ePHEDrine 50 MG/ML SDV IVPUSH PRN (09:59)
[2020-04-01] MEDS ORDERED: fentaNYL 100 MCG/2 ML SDV EPIDUR PRN (09:59)
[2020-04-01] MEDS ORDERED: Bupivacaine/fentaNYL/NS 100 ML Bag EPIDUR PRN (09:59)
[2020-04-01] MEDS ORDERED: diphenhydrAMINE 50 MG/ML SDV IVPUSH PRN (09:59)
[2020-04-01] MEDS: Ampicillin 1 GM in Sodium Chloride 0.9% 100 ML IV SCH ×2 (11:29→15:25)
--- NOTE | 2020-04-01 17:16 | PCM.SN.2 ---
- Free Text/Narrative Note: Leigh is a 22-year-old 2 now para 2002 white female who is at 39-4/7 weeks gestational age was admitted this a.m. for elective induction of labor with Pitocin and artificial rupture membranes. She progressed steadily throughout the day. She underwent epidural analgesia for labor pain control. She became completely dilated at approximately 1630 hrs. on 04/01/2020. Patient pushed 1 contraction and delivered a viable, espiita, female with Apgars of 8 and 9, a weight of 3190 g (7 pounds 0.5 ounces), a length of 20.0 inches at 1638 hrs. on 04/01/2020 in a direct occiput anterior position. Baby was placed on mom's abdomen. Nose and mouth were bulb suctioned and the baby was dried with warm blanket. The umbilical cord was allowed to pulsate 2-3 minutes. Pitocin was increased to 500 mL per hour per protocol to facilitate increase in uterine tone and decrease likelihood of bleeding. Umbilical cord was then clamped 2 and cut by the baby's father Tad. Cord was obtained. The umbilical cord had 3 vessels. Patient had a second-degree laceration which extended onto the medial aspect of the posterior labia minora. This was repaired with 3-0 Monocryl with 2 short running sutures. Epidural analgesia was used for perineal anesthesia for this repair. Patient tolerated this well. The placenta delivered in a Rosario presentation, appeared intact and complete and was discarded per patient desire. Patient plans to breast-feed. Assessment blood loss was 200 mL. Condition: Good.
[2020-04-01] MEDS ORDERED: Benzocaine/Menthol 20%-0.5% Spray 56 GM Canister TOP PRN (17:26)
[2020-04-01] MEDS ORDERED: Docusate Sodium 100 MG Cap PO PRN (17:26)
[2020-04-01] MEDS ORDERED: Acetaminophen 325 MG Tab PO PRN (17:26)
[2020-04-01] MEDS ORDERED: Witch Hazel Medicated Pads 40/Jar TOP PRN (17:26)
[2020-04-01] MEDS: Ibuprofen 600 MG Tab PO PRN (19:13)
[2020-04-02] MEDS ORDERED: Bupivacaine 0.25% 10 ML SDV ONE
[2020-04-02] MEDS: Ibuprofen 600 MG Tab PO PRN ×2 (05:49→11:17)
--- NOTE | 2020-04-02 07:50 | PCM48HPAN ---
Post Anesthesia Note - EVALUATION WITHIN 48HRS OF ANESTHETIC Vital Signs in Normal Range: Yes Patient Participated in Evaluation: Yes Respiratory Function Stable: Yes Airway Patent: Yes Cardiovascular Function Stable: Yes Hydration Status Stable: Yes Pain Control Satisfactory: Yes Nausea and Vomiting Control Satisfactory: Yes Mental Status Recovered: Yes Vital Signs: Last Vital Signs Temp 36.5 C 04/02/20 03:11 Pulse 106 H 04/01/20 20:24 Resp 14 04/02/20 03:11 BP 116/87 04/02/20 03:11 Pulse Ox 97 04/01/20 20:24 - COMMENTS/OBSERVATIONS Free Text/Narrative:: no anesthesia complications noted
[2020-04-02] MEDS ORDERED: Prenatal Multivitamin with Calcium/Folic Acid/Iron Tab PO SCH (09:00)
--- NOTE | 2020-04-02 18:08 | PCM.DCSUM1 ---
Discharge Summary - Hospital Course Free Text/Narrative:: Leigh is a 22-year-old 2 now para 2002 white female who is at 39-4/7 weeks gestational age was admitted this a.m. for elective induction of labor with Pitocin and artificial rupture membranes. She progressed steadily throughout the day. She underwent epidural analgesia for labor pain control. She became completely dilated at approximately 1630 hrs. on 04/01/2020. Patient pushed 1 contraction and delivered a viable, espitia, female infant with Apgars of 8 and 9, a weight of 3190 g (7 pounds 0.5 ounces), a length of 20.0 inches at 1638 hrs. on 04/01/2020 in a direct occiput anterior position. Baby was placed on mom's abdomen. Nose and mouth were bulb suctioned and the baby was dried with warm blanket. The umbilical cord was allowed to pulsate 2-3 minutes. Pitocin was increased to 500 mL per hour per protocol to facilitate increase in uterine tone and decrease likelihood of bleeding. Umbilical cord was then clamped 2 and cut by the baby's father Tad. Cord was obtained. The umbilical cord had 3 vessels. Patient had a second-degree laceration which extended onto the medial aspect of the posterior labia minora. This was repaired with 3-0 Monocryl with 2 short running sutures. Epidural analgesia was used for perineal anesthesia for this repair. Patient tolerated this well. The placenta delivered in a Rosario presentation, appeared intact and complete and was discarded per patient desire. Patient plans to breast-feed. Assessment blood loss was 200 mL. patient is done well. Her vital signs are stable, she is afebrile and exam doing well. She is nursing without problems. She has minimal lochia and is voiding well. She is desiring discharge home. Condition: Good. Diagnosis: Stroke: No - Discharge Data Discharge Date: 04/02/20 Discharge Disposition: Home, Self-Care 01 Condition: Good - Referral to Home Health Primary Care Physician: Adolfo Buck MD - Patient Instructions Diet: Usual Diet as Tolerated, Regular Diet as Tolerated (Nursing diet with increase calories and calcium as recommended) Diet, Other: Extra calories, extra calcium for . Activity: As Tolerated (No intercourse or tampons until bleeding resolves) Driving: May Drive Today Showering/Bathing: May Shower (May take a bath) Showering/Bathing, Other: May bathe, no public swimming pools or hot tubs Notify Provider of: Fever, Increased Pain, Swelling and Redness, Drainage, Nausea and/or Vomiting - Discharge Plan Home Medications: Home Meds Ferrous Sulfate, Dried [Slow Release Iron] 160 mg DAILY 04/12/17 [History] Acetaminophen [Tylenol] 650 mg PO Q4H PRN tablet 04/02/20 [Rx] Benzocaine/Menthol [Dermoplast Pain Relief Goessel] 1 spray TOP ASDIRECTED PRN canister 04/02/20 [Rx] Docusate Sodium [Colace] 100 mg PO BID PRN cap 04/02/20 [Rx] Ibuprofen [Motrin] 600 mg PO Q4H PRN tablet 04/02/20 [Rx] Vit with Ca/FA/Iron [ Plus Iron] 1 each PO DAILY tablet 04/02/20 [Rx] henny Estefany [Tucks] 1 pad TOP ASDIRECTED PRN pad 04/02/20 [Rx] Patient Handouts: Tips for a Good Latch, [id number], Care After Vaginal Delivery Referrals: Adolfo Buck MD [Primary Care Provider] - ( follow up in 2 weeks. Please call and make this appointment.) - Discharge Summary/Plan Comment DC Time >30 min.: No Discharge Summary/Plan Comment: Discharge instructions: 1. Discharge home 2. Diet, activity and follow-up discussed with patient. Recommend nursing diet with increased calories and calcium. 3. Precautions given concern increased pain, bleeding, temperature, signs/ symptoms of DVT/PE. 4. Medications per home medication was printed, discussed with and given to the patient. 5. Return to clinic-[facility]. Buck[facility] in 2-4 weeks. Diagnosis: Term -delivered Condition: Good - Patient Data Vitals - Most Recent: Last Vital Signs Temp 36.4 C 04/02/20 08:37 Pulse 84 04/02/20 08:37 Resp 14 04/02/20 08:37 BP 110/69 04/02/20 08:37 Pulse Ox 95 04/02/20 08:37 Weight - Most Recent: 88.995 kg Lab Results - Last 24 hrs: Laboratory Results - last 24 hr 04/01/20 Range/Units 07:24 RPR Non-reactive (NONREACTIVE) Med Orders - Current: Current Medications Acetaminophen (Tylenol) 650 mg PO Q4H PRN PRN Reason: mild pain or fever Benzocaine/Menthol (Dermoplast Pain Relief Goessel) 0 gm TOP ASDIRECTED PRN PRN Reason: Perineal Comfort Measure Last Admin: 04/01/20 19:14 Dose: 1 applic Documented by: Docusate Sodium (Colace) 100 mg PO BID PRN PRN Reason: Constipation Ibuprofen (Motrin) 600 mg PO Q4H PRN PRN Reason: Mild pain or fever Last Admin: 04/02/20 11:17 Dose: 600 mg Documented by: Prenat Multivit/Telecommunicator Supervisor/Iron/Folic Ac ( Plus Iron) 1 each PO DAILY [facility] Last Admin: 04/02/20 13:33 Dose: Not Given Documented by: Henny Vernon ([facility]) 1 pad TOP ASDIRECTED PRN PRN Reason: Perineal Comfort Measure Last Admin: 04/01/20 19:14 Dose: 1 pad Documented by: Discontinued Medications Bupivacaine HCl (Sensorcaine-Mpf 0.25%) 10 ml .ROUTE .STK-MED ONE Stop: 04/02/20 00:01 Diphenhydramine HCl (Benadryl) 25 mg IVPUSH Q6H PRN PRN Reason: pruritis Ephedrine Sulfate (Ephedrine Sulfate) 5 mg IVPUSH ASDIRECTED PRN PRN Reason: Hypotension Fentanyl (Sublimaze) 100 mcg EPIDUR Q3H PRN PRN Reason: Pain Last Admin: 04/01/20 10:14 Dose: 100 mcg Documented by: Fentanyl/Bupivacaine HCl (Fentanyl/Bupivacaine/Ns 2 Mcg-0.125% 100 Ml) 100 ml EPIDUR ASDIRECTED PRN PRN Reason: Pain Last Admin: 04/01/20 10:14 Dose: 100 ml Documented by: Ampicillin Sodium 2 gm/ Sodium (Chloride) 100 mls @ 200 mls/hr IV ONETIME ONE Stop: 04/01/20 07:59 Last Admin: 04/01/20 07:47 Dose: 200 mls/hr Documented by: Ampicillin Sodium 1 gm/ Sodium (Chloride) 100 mls @ 200 mls/hr IV Q4H JAIME Last Admin: 04/01/20 15:25 Dose: 200 mls/hr Documented by: Oxytocin/Lactated Ringer's (Pitocin In Lr 10 Units/1,000 Ml) 10 unit in 1,000 mls @ 12 mls/hr IV TITRATE JAIME; Protocol Last Titration: 04/01/20 16:39 Dose: 500 munits/min, 3,000 mls/hr Documented by: Oxytocin/Lactated Ringer's (Pitocin In Lr 10 Units/1,000 Ml) 10 unit in 1,000 mls @ 500 mls/hr IV .CONTINUOUS JAIME Lactated Ringer's (Ringers, Lactated) 1,000 mls @ 100 mls/hr IV ASDIRECTED JAIME Last Admin: 04/01/20 13:10 Dose: 100 mls/hr Documented by: Nalbuphine HCl (Nubain) 10 mg IVPUSH Q2H PRN PRN Reason: Pain Sodium Chloride (Saline Flush) 10 ml FLUSH ASDIRECTED PRN PRN Reason: Keep Vein Open
[2020-04-02 18:26] VITALS: BP 102/88; PULSE 85
== END 2020-04-02 18:25 | disposition home or self-care (01) | DRG 807 ==
LOC: JD.OB 06:50 → OBSVTOIN 16:38 → JD.OB 17:12
PROVIDERS: ADMIT Obstetrics & Gynecology; ATTEND Obstetrics & Gynecology
PROC: 10E0XZZ Delivery of Products of Conception, External Approach (ICD-10-PCS; principal; 2020-04-01)
PROC: 0KQM0ZZ Repair Perineum Muscle, Open Approach (ICD-10-PCS; 2020-04-01)
PROC: 10907ZC Drainage of Amniotic Fluid, Therapeutic from Products of Conception, Via Natural or Artificial Opening (ICD-10-PCS; 2020-04-01)
PROC: 3E033VJ Introduction of Other Hormone into Peripheral Vein, Percutaneous Approach (ICD-10-PCS; 2020-04-01)
PROC: 3E0R3BZ Introduction of Anesthetic Agent into Spinal Canal, Percutaneous Approach (ICD-10-PCS; 2020-04-01)
PROC: 00HU33Z Insertion of Infusion Device into Spinal Canal, Percutaneous Approach (ICD-10-PCS; 2020-04-01)
DX: O99.824 Streptococcus B carrier state complicating childbirth (principal); Z37.0 Single live birth; Z3A.39 39 weeks gestation of pregnancy; O70.1 Second degree perineal laceration during delivery; Z11.59 Encounter for screening for other viral diseases
CPT/HCPCS: 01967; 36415; 51702; 59025; 59409; 85025; 86592; 86850; 86900; 86901; A9270-GY; J0290; J2590; J3010; J3490; J7050; J7120; U0002

== ENCOUNTER 2022-04-08 10:40 | Inpatient (IN) | payer OTHER ==
[~2022-04-08 10:40] MED LIST: Bupivacaine 0.25% 10 ML SDV ONE
[2022-04-08] MEDS ORDERED: Nalbuphine HCl 10 MG/ 1ML Amp IVPUSH PRN (11:37)
[2022-04-08] MEDS ORDERED: Sodium Chloride 0.9% 10 ML Syringe FLUSH PRN (11:37)
[2022-04-08] MEDS ORDERED: Oxytocin/Lactated Ringers 10 UNIT/1,000 ML BAG IV SCH ×2 (11:45)
[2022-04-08] MEDS: Lactated Ringers 1,000 ML IV SCH ×3 (12:09→14:41)
[2022-04-08] MEDS ORDERED: Lidocaine 1% 50 ML MDV INJECT ONE (12:30)
[2022-04-08] MEDS ORDERED: Bupivacaine/fentaNYL/NS 100 ML Bag EPIDUR PRN (13:31)
[2022-04-08] MEDS ORDERED: diphenhydrAMINE 50 MG/ML SDV IVPUSH PRN (13:31)
[2022-04-08] MEDS ORDERED: ePHEDrine 50 MG/ML SDV IVPUSH PRN (13:31)
[2022-04-08] MEDS ORDERED: fentaNYL 100 MCG/2 ML SDV EPIDUR PRN (13:31)
[2022-04-08] MEDS ORDERED: Benzocaine/Menthol 20%-0.5% Spray 78 GM Cannister TOP PRN (15:00)
[2022-04-08] MEDS ORDERED: Ibuprofen 600 MG Tab PO PRN (15:00)
[2022-04-08] MEDS ORDERED: Witch Hazel Medicated Pads 40/Jar TOP PRN (15:00)
[2022-04-08] MEDS ORDERED: Acetaminophen 325 MG Tab PO PRN (15:00)
[2022-04-08] MEDS ORDERED: Sodium Chloride 0.9% 10 ML Syringe FLUSH SCH (21:00)
[2022-04-09] MEDS ORDERED: Docusate Sodium 100 MG Cap PO SCH (09:00)
[2022-04-09 16:03] VITALS: BP 108/66; PULSE 69
== END 2022-04-09 16:10 | disposition home or self-care (01) | DRG 807 ==
LOC: JD.OBCHECK 10:40 → JD.OB 10:43 → JD.OBCHECK 11:37 → JD.OB 11:37 → OBSVTOIN 14:40 → JD.OB 14:41
PROVIDERS: ADMIT Obstetrics & Gynecology; ATTEND Obstetrics & Gynecology
PROC: 10907ZC Drainage of Amniotic Fluid, Therapeutic from Products of Conception, Via Natural or Artificial Opening (ICD-10-PCS; principal; 2022-04-09)
PROC: 10E0XZZ Delivery of Products of Conception, External Approach (ICD-10-PCS; 2022-04-09)
PROC: 0HQ9XZZ Repair Perineum Skin, External Approach (ICD-10-PCS; 2022-04-09)
PROC: 3E0R3BZ Introduction of Anesthetic Agent into Spinal Canal, Percutaneous Approach (ICD-10-PCS; 2022-04-09)
DX: O99.214 Obesity complicating childbirth (principal); Z37.0 Single live birth; O70.0 First degree perineal laceration during delivery; Z3A.39 39 weeks gestation of pregnancy
CPT/HCPCS: 36415; 51702; 59025; 59409; 85025; 86592; A9270-GY; J2590; J3010; J3490; J7120